=== PATIENT | male | born 1960 | race Hispanic/Latino ===

== ENCOUNTER 2018-02-08 08:24 | Emergency (ER) | payer BC ==
[~2018-02-08] VITALS: Ht 172.7 cm; Wt 99.8 kg
[2018-02-08] MEDS ORDERED: SODIUM CHLORIDE 0.9% 1000ML 1,000 ML IV STA (08:51)
[2018-02-08] MEDS ORDERED: ASPIRIN 81 MG CHEW TAB PO ONE (09:00)
[2018-02-08 09:32] LABS: BASOPHILS # (AUTO) 0.1 (0.0-0.1); BASOPHILS % 0.3 % (0.0-1.0); EOSINOPHILS # (AUTO) 0.1 (0.0-0.4); EOSINOPHILS % 0.3 % (0.0-6.0); HEMATOCRIT 44.8 % (38.2-49.6); HEMOGLOBIN 14.8 g/dL (14.0-18.0); LYMPHOCYTES # (AUTO) 0.8 (1.0-3.2); LYMPHOCYTES % 5.8 % (18.0-39.1); MEAN CORPUSCULAR HEMOGLOBIN 31.9 pg (28-32); MEAN CORPUSCULAR VOLUME 96.6 fL (81-99); MONOCYTES # (AUTO) 0.9 (0.2-0.8); NEUTROPHILS # (AUTO) 12.7 (2.1-6.9); NEUTROPHILS % 86.7 % (38.7-80.0); PLATELET COUNT 266 x10e3/uL (140-360); RED BLOOD COUNT 4.64 x10e6/uL (4.3-5.7); RED CELL DISTRIBUTION WIDTH 13.2 % (11.7-14.4)
--- NOTE | 2018-02-08 09:36 | Diagnostic Imaging Report ---
Exam: Head CT without contrast History: Syncope, fall, hit back of head Comparison studies: None Technique: Axial images were obtained from the skull base to the vertex. Coronal and sagittal images reconstructed from the axial data. Dose modulation, iterative reconstruction, and/or weight based adjustment of the mA/kV was utilized to reduce the radiation dose to as low as reasonably achievable. Radiation dose: Total DLP: 921 mGy*cm. Estimated effective dose: DLP x 0.015 Intravenous contrast: None Findings: Scalp: Parietal scalp hematoma with laceration. No calvarial fracture. Bones: No fractures, blastic or lytic lesions. Brain sulci: Appropriate for age. Ventricles: Normal in size and configuration. No hydrocephalus. Extra-axial spaces: Small subarachnoid hemorrhage along the right superior frontal sulcus and within the anterior midline frontal regions along the cingulate gyri. Parenchyma: No abnormal densities. No masses, hemorrhage, acute or chronic vascular insults. Sellar/suprasellar region: No abnormalities. Craniocervical junction: Patent foramen magnum. No Chiari one malformation. IMPRESSION: 1. Small acute bifrontal subarachnoid hemorrhage. 2. No other acute intracranial abnormalities. 3. Posterior parietal scalp hematoma with small laceration. No fracture. Although intracranial hemorrhage may be posttraumatic, recommend CTA to further evaluate. Findings and recommendations discussed with Dr. Akhtar at 9:27 AM on 02/08 2018. Signed by: Dr. Christopher Molina M.D. on 02/08/2018 9:33 AM
[2018-02-08 09:40] LABS: INR 0.9
[2018-02-08 09:41] LABS: PARTIAL THROMBOPLASTIN TIME 24.2 seconds (23.8-35.5)
[2018-02-08 09:49] LABS: ALANINE AMINOTRANSFERASE 23 IU/L (0-55); ALBUMIN 3.9 g/dL (3.5-5.0); ALBUMIN/GLOBULIN RATIO 1.2 (0.8-2.0); ALKALINE PHOSPHATASE 85 IU/L (40-150); ANION GAP 15.6 mmol/L (8-16); BLOOD UREA NITROGEN 17 mg/dL (7-26); BUN/CREATININE RATIO 20 (6-25); CALCIUM 8.7 mg/dL (8.4-10.2); CARBON DIOXIDE 22 mmol/L (22-29); CHLORIDE 107 mmol/L (98-107); CREATINE KINASE 83 IU/L (30-200); CREATININE, SERUM 0.87 mg/dL (0.72-1.25); EST GLOMERULAR FILTRATION RATE > 60 ML/MIN (60-); GLUCOSE 135 mg/dL (74-118); LIPASE 28 U/L (8-78); POTASSIUM 4.6 mmol/L (3.5-5.1); SODIUM 140 mmol/L (136-145)
[2018-02-08] MEDS ORDERED: ACETAMINOPHEN 325 MG TAB PO ONE ×2 (10:15)
[2018-02-08] MEDS ORDERED: LOW DOSE ASPIRI81 MG PO (10:56)
[2018-02-08] MEDS ORDERED: IRBESARTAN300 MG PO (10:56)
[2018-02-08] MEDS ORDERED: CLOPIDOGREL75 MG PO (10:56)
[2018-02-08] MEDS ORDERED: LOVASTATIN40 MG PO (10:56)
--- NOTE | 2018-02-08 11:44 | Diagnostic Imaging Report ---
History:Acute subarachnoid hemorrhage, Comparison studies:Head CT performed on the same date 02/08/2018 at 0907 hours. Technique: Axial images were obtained from the thoracic inlet. Coronal and sagittal images reconstructed from the axial data. Additional 3-D volume rendered reformatted images of the carotid arteries and [place] were graded from the axial source data. Dose modulation, iterative reconstruction, and/or weight based adjustment of the mA/kV was utilized to reduce the radiation dose to as low as reasonably achievable. Intravenous contrast: 100 cc of Omnipaque 300. If present, stenosis is calculated utilizing the NASCET method which calculates the degree of stenosis with reference to the normal lumen of the carotid artery distal to the stenosis. Findings: Cervical CTA: Aortic arch and major vessels: Patent. No abnormalities. Common origin of the left common carotid artery right brachycephalic trunk. Right carotid artery: Patent, no stenosis in the common carotid artery. Mild soft plaque at the bifurcation extends to the carotid bulb without hemodynamically significant stenosis (0% stenosis by NASCET criteria). Patent, no other abnormalities in the internal carotid artery. Left carotid artery: Patent, no stenosis in the common carotid artery. Mild calcified and soft plaque at the carotid bifurcation extends to the left carotid bulb without hemodynamically significant stenosis (0% stenosis by NASCET criteria). No other abnormalities in the internal carotid artery. Vertebral arteries: Patent, no abnormalities. Intracranial CTA: Internal carotid arteries: Patent bilaterally with mild noncalcified plaque in the bilateral paraophthalmic segments. Anterior cerebral arteries: Patent. No abnormalities. Middle cerebral arteries: Patent. No abnormalities. Vertebral arteries: Patent. No abnormalities. Basilar artery: Patent. No abnormalities. Posterior cerebral arteries: Patent. No abnormalities. Anatomical variants: Acom: Not well visualized. Pcoms: Not well visualized, possibly hypoplastic. Vertebral arteries: Essentially codominant. Additional findings: Posterior parietal scalp swelling without underlying fracture. Acute subarachnoid hemorrhage better visualized on the preceding head CT of the same date. 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 Mild degenerative changes in the cervical and included thoracic spine. IMPRESSION: Cervical CTA:. 1. Mild atherosclerosis at the carotid bifurcations and carotid bulbs without hemodynamically significant stenosis (0% stenosis by NASCET criteria). 2. No other arterial abnormalities. Intracranial CTA: 1. No aneurysm or vascular malformation identified. 2. No major branch occlusion or hemodynamically significant stenosis. Signed by: Dr. Christopher Molina M.D. on 02/08/2018 11:40 AM
[2018-02-08] MEDS ORDERED: SODIUM CHLORIDE 0.9% 50ML 50 ML ONE (22:40)
[2018-02-08] MEDS ORDERED: IOPAMIDOL 370 MG/ML 200 ML INFUS..BTL INJ ONE (22:40)
== END 2018-02-08 11:40 | disposition short-term general hospital (02) ==
LOC: ER 08:24
DX: S06.6X9A Traumatic subarachnoid hemorrhage with loss of consciousness of unspecified duration, initial encounter (principal); W19.XXXA Unspecified fall, initial encounter; Z79.02 Long term (current) use of antithrombotics/antiplatelets; Z79.82 Long term (current) use of aspirin; R55 Syncope and collapse; S01.91XA Laceration without foreign body of unspecified part of head, initial encounter
CPT/HCPCS: 36415; 70450; 70496; 70498; 80053; 82550; 82553; 83690; 84484; 85025; 85610; 85730; 93005; 99284; J7030; Q9967